=== PATIENT | male | born 1970 ===

== ENCOUNTER 2017-01-20 21:30 | Emergency (ER) | payer OTHER ==
[2017-01-20 21:31] VITALS: BMI 36.6
--- NOTE | 2017-01-21 00:23 | C.PDOC ---
History Of Present Illness Patient, with a past medical history of hypertension and arthritis, presents to the ED complaining of numbness to his right cheek for the past 2 days. Patient denies slurred speech, facial droop, weakness, numbness to any other parts of the body, or vision change. Time Seen by Provider: 01/21/17 00:23 Chief Complaint (Nursing): Weakness/Neurological Deficit History Per: Patient History/Exam Limitations: no limitations Onset/Duration Of Symptoms: Days (2) Current Symptoms Are (Timing): Still Present Seizure Or Post-ictal Symptoms: None Fall Associated With With Symptoms: No Severity: Mild Pain Scale Rating Of: 0 Recent travel outside of the [place]: No Past Medical History Reviewed: Historical Data, Nursing Documentation, Vital Signs Vital Signs: Last Vital Signs Temp 98.8 F 01/21/17 00:52 Pulse 90 01/21/17 00:52 Resp 16 01/21/17 00:52 BP 164/98 H 01/21/17 00:52 Pulse Ox 97 01/21/17 02:38 - Medical History PMH: Arthritis (gouty), HTN Family History: States: Unknown Family Hx - Social History Hx Tobacco Use: No Hx Alcohol Use: Yes Hx Substance Use: No - Immunization History Hx Tetanus Toxoid Vaccination: Yes Hx Influenza Vaccination: No Hx Pneumococcal Vaccination: No Review Of Systems Eyes: Negative for: Vision Change Musculoskeletal: Positive for: Other (numbness to right cheek) Neurological: Negative for: Weakness, Numbness, Change in Speech, Other (facial droop) Physical Exam - Physical Exam Appears: Non-toxic, No Acute Distress Skin: Warm, Dry Head: Atraumatic, Normacephalic Eye(s): bilateral: PERRL, EOMI Oral Mucosa: Moist Neck: Supple Chest: Symmetrical Cardiovascular: Rhythm Regular Respiratory: No Rales, No Rhonchi, No Wheezing Gastrointestinal/Abdominal: Soft, No Tenderness Back: No CVA Tenderness Extremity: Bilateral: Atraumatic, Normal Color And Temperature Neurological/Psych: Oriented x3, Normal Speech, Normal Cognition, Normal Cranial Nerves, Normal Motor, Normal Sensation Gait: Steady ED Course And Treatment ECG: Interpreted By Me, Viewed By Me ECG Rhythm: Sinus Rhythm, Nonspecific Changes O2 Sat by Pulse Oximetry: 97 (RA) Pulse Ox Interpretation: Normal - CT Scan/US Head CT Other Rad Studies (CT/US): Read By Radiologist (Mannie De Souza MD), Radiology Report Reviewed CT/US Interpretation: EXAM: CT Head Without Intravenous Contrast. CLINICAL HISTORY: The patient is a 46 years male; Signs and symptoms; Numbness / parasthesia; Right; Additional info: Facial numbness. TECHNIQUE: Axial computed tomography images of the head/brain without intravenous contrast. This CT exam. was performed using one or more of the following dose reduction techniques: automated exposure. control, adjustment of the mA and/or kV according to patient size, and/or use of iterative. reconstruction technique. COMPARISON: No relevant prior studies available. FINDINGS: The sulci and ventricles are normal in size and configuration for the stated age of the patient. The chilel-white matter differentiation is preserved. There is no evidence for acute intracranial hemorrhage, midline shift, mass effect, or acute vascular. territorial infarct. There is a chronic-appearing fracture deformity of the medial wall of the right orbit. The visualized paranasal sinuses are well-aerated. The mastoid air cells are clear. The skull base and calvaria appear intact. IMPRESSION: No CT evidence of acute intracranial abnormality. Changes of an acute infarct may not be visible on CT for up to 24 to 48 hours. If there is a persistent. clinical concern, a follow up examination and/or MRI may be of benefit. Progress Note: Plan: Head CT, blood work Reevaluation Time: 02:36 Reassessment Condition: Improved NIHSS Stroke Scale - Date/Time Evaluation Performed Date Performed: 01/21/17 Time Performed: 00:00 When Was NIHSS Performed: Baseline - How Severe is the Stoke Level of Consciousness: 0=Alert LOC to Questions: 0=Both comments correct LOC to commands: 0=Obeys both correctly Best Gaze: 0=Normal Visual: 0=No visual loss Facial: 0=Normal Motor Arm - Left: 0=No drift Motor Arm - Right: 0=No drift Motor Leg - Left: 0=No drift Motor Leg - Right: 0=No drift Limb Ataxia: 0=Absent Sensory: 0=Normal Best Language: 0=No aphasia Dysarthia: 0=Normal articulation Extinction & Inattention (Neglect): 0=Normal, no object Score: 0 Severity Of Stroke: 0= No Stroke Medical Decision Making Medical Decision Making: Upon provider reevaluation patient is feeling better, is medically stable, and requires no further treatment in the ED at this time. Patient will be discharged home with Rx for naproxyn. Counseling was provided and all questions were answered regarding diagnosis and need for follow up with the referred clinic. There is agreement to discharge plan. Return if symptoms persist or worsen. Disposition Counseled Patient/Family Regarding: Studies Performed, Diagnosis, Need For Followup - Disposition Referrals: [facility] [Outside] [facility] [Outside] Disposition: HOME/ ROUTINE Disposition Time: 00:23 Condition: FAIR Additional Instructions: Please return if symptoms recur Prescriptions: Naproxen [Naprosyn] 1 tab PO BID PRN #25 tab PRN Reason: Pain Instructions: Paresthesia (ED), Cervical Strain (DC) Print Language: URDU - Clinical Impression Clinical Impression: Paresthesia, Cervical strain - Scribe Statement The provider has reviewed the documentation as recorded by the Shankaribnas Mead Provider Attestation: All medical record entries made by the Scribe were at my direction and personally dictated by me. I have reviewed the chart and agree that the record accurately reflects my personal performance of the history, physical exam, medical decision making, and the department course for this patient. I have also personally directed, reviewed, and agree with the discharge instructions and disposition.
[2017-01-21 00:52] VITALS: RESP 16; TEMP 98.8
[2017-01-21 03:25] VITALS: BP 152/90; PULSE 83; O2SAT 100
[2017-01-21 03:25] LABS: BASO % 0.3 % (0.0-2.0); EOS # 0.1 K/uL (0.0-0.7); EOS % 1.9 % (0.0-4.0); HEMATOCRIT 46.9 % (35.0-51.0); LYMPH # 2.6 K/uL (1.0-4.3); LYMPH % 39.1 % (20.0-40.0); MEAN CELL VOLUME 87.5 fL (80.0-94.0); MEAN CORPUSCULAR HEMOGLOBIN 29.5 pg (27.0-31.0); MEAN CORPUSCULAR HGB CONC 33.7 g/dL (33.0-37.0); MEAN PLATELET VOLUME 9.3 fL (7.2-11.7); MONO # 0.6 K/uL (0.0-0.8); MONO % 8.8 % (0.0-10.0); NRBC % 0.1 % (0.0-2.0); WHITE BLOOD COUNT 6.6 K/uL (4.8-10.8)
[2017-01-21 03:34] LABS: CHLORIDE 103 mmol/L (98-107)
[2017-01-21 03:35] LABS: POTASSIUM 3.8 mmol/L (3.6-5.2); SODIUM 141 mmol/L (132-148)
[2017-01-21 03:37] LABS: ALB/GLOB RATIO 1.3 (1.0-2.1); AST/SGOT 57 U/L (17-59); BILIRUBIN,TOTAL 0.4 mg/dL (0.2-1.3); BLOOD UREA NITROGEN 10 mg/dL (9-20); CARBON DIOXIDE 23 mmol/L (22-30); GFR AFRICAN-AMERICAN > 60; TOTAL PROTEIN 7.7 g/dL (6.3-8.3)
[2017-01-21 03:38] LABS: ALKALINE PHOSPHATASE 79 U/L (38-126); ALT/SGPT 72 U/L (21-72); CALCIUM 9.1 mg/dl (8.6-10.4); GLUCOSE,RANDOM 98 mg/dL (75-110)
--- NOTE | 2017-01-21 08:04 | CT ---
PROCEDURE: CT HEAD WITHOUT CONTRAST. HISTORY: facial numbness COMPARISON: None available. TECHNIQUE: Axial computed tomography images were obtained through the head/brain without intravenous contrast. Radiation dose: Total exam DLP = 884 mGy-cm. This CT exam was performed using one or more of the following dose reduction techniques: Automated exposure control, adjustment of the mA and/or kV according to patient size, and/or use of iterative reconstruction technique. FINDINGS: HEMORRHAGE: No intracranial hemorrhage. BRAIN: No mass effect or edema. No atrophy or chronic microvascular ischemic changes. VENTRICLES: Unremarkable. No hydrocephalus. CALVARIUM: Chronic appearing fracture deformity of the medial wall of the right orbit. PARANASAL SINUSES: Unremarkable as visualized. No significant inflammatory changes. MASTOID AIR CELLS: Unremarkable as visualized. No inflammatory changes. OTHER FINDINGS: None. IMPRESSION: No acute intracranial abnormality. Chronic appearing fracture deformity of the medial wall of the right orbit. These findings were preliminarily reported at 1:05 a.m. on 01/21/[address] Mannie De Souza from [facility].
== END 2017-01-21 03:46 | disposition home or self-care (01) ==
LOC: C.ER 21:30
DX: S16.1XXA Strain of muscle, fascia and tendon at neck level, initial encounter (principal); X58.XXXA Exposure to other specified factors, initial encounter; Y92.9 Unspecified place or not applicable

== ENCOUNTER 2017-05-06 15:40 | Emergency (ER) | payer OTHER ==
[2017-05-06 15:40] VITALS: BMI 38.5
--- NOTE | 2017-05-06 17:46 | C.PDOC ---
History Of Present Illness 46year old male with PMH of HTN presents to ED with complaints of chest palpitations with associated SOB since last night. Patient reports sensation of heart beating fast and when he takes deep breath it is aggravated. Patient reports feeling similar episodes in the past, but denies any medical consult. He reports eating today and feeling burning sensation in his stomach and then belching with mild relief and sour taste in his mouth. Additionally when he checked is blood pressure today and noticed it was high, his "heart feels extra stressed". He took his medication and came to ED. He denies chest pain, dizziness, nausea, vomiting. Time Seen by Provider: 05/06/17 16:56 Chief Complaint (Nursing): Palpitations History Per: Patient History/Exam Limitations: no limitations Onset/Duration Of Symptoms: Days Current Symptoms Are (Timing): Still Present Quality Of Symptoms: Rapid Heart Rate, Extra Beats Past Medical History Reviewed: Historical Data, Nursing Documentation, Vital Signs Vital Signs: Last Vital Signs Temp 99 F 05/06/17 18:54 Pulse 82 05/06/17 18:54 Resp 18 05/06/17 18:54 BP 144/97 H 05/06/17 18:54 Pulse Ox 96 05/06/17 18:54 - Medical History PMH: Arthritis (gouty), HTN Family History: States: Unknown Family Hx - Social History Hx Tobacco Use: No Hx Alcohol Use: Yes Hx Substance Use: No - Immunization History Hx Tetanus Toxoid Vaccination: Yes Hx Influenza Vaccination: No Hx Pneumococcal Vaccination: No Review Of Systems Constitutional: Negative for: Fever, Weakness, Malaise Cardiovascular: Positive for: Palpitations. Negative for: Chest Pain Respiratory: Negative for: Shortness of Breath Gastrointestinal: Negative for: Vomiting, Abdominal Pain, Diarrhea Musculoskeletal: Negative for: Neck Pain, Shoulder Pain Skin: Negative for: Rash Neurological: Negative for: Weakness, Numbness, Headache, Dizziness Physical Exam - Physical Exam Appears: Non-toxic, No Acute Distress Skin: Warm, Dry, No Diaphoretic, No Pale, No Rash Head: Atraumatic, Normacephalic Eye(s): bilateral: Normal Inspection Oral Mucosa: Moist Neck: Normal ROM Chest: Symmetrical, No Tenderness Cardiovascular: Rhythm Regular, No Murmur Respiratory: Normal Breath Sounds, No Rales, No Rhonchi, No Wheezing Gastrointestinal/Abdominal: Normal Exam, Soft, No Tenderness Back: Normal Inspection, No Vertebral Tenderness, No Paraspinal Tenderness Extremity: Bilateral: Atraumatic, No Pedal Edema, Normal Color And Temperature, Normal ROM Pulses: Left Radial: Normal Neurological/Psych: Oriented x3, Normal Speech, Normal Motor, Normal Sensation Gait: Steady ED Course And Treatment - Laboratory Results Result Diagrams: 05/06/17 17:52 05/06/17 17:52 Lab Interpretation: No Acute Changes ECG: Interpreted By Me, Viewed By Me ECG Rhythm: Sinus Rhythm ECG Interpretation: No Acute Changes Rate From EC O2 Sat by Pulse Oximetry: 98 - Radiology CXR: Interpreted by Me, Viewed By Me CXR Interpretation: Yes: No Acute Disease Medical Decision Making Medical Decision Makin46 year old male with hear palpitations since last night, denies chest pain. EKG shows no acute findings. Labs ordered and CXR. Review all labs and CXR. Patient remained alert and oriented in no acute distress. No episode during ED evaluation. Patient reports it happened more last night and when he ate today. Symptoms may be anxiety related. Advise follow up in the clinic or return to hospital for any worsening symptoms including chest pain or dyspnea. Disposition Counseled Patient/Family Regarding: Studies Performed, Diagnosis, Need For Followup - Disposition Referrals: Prema Munoz MD [Staff Provider] - Disposition: HOME/ ROUTINE Disposition Time: 18:25 Condition: STABLE Additional Instructions: Vaya a carlson mdico o la clnica en 2-5 cruz sin falta, para mas evaluacin. Volver a la hua de emergencia en cualquier momento si los sntomas persisten o empeoran. Instructions: Palpitations (ED) Forms: [employer] (Mongolian) Print Language: KYRGYZ - POA Present On Arrival: None - Clinical Impression Clinical Impression: Palpitations
[2017-05-06 17:56] LABS: BASO % 0.3 % (0.0-2.0); EOS # 0.1 K/uL (0.0-0.7); EOS % 1.5 % (0.0-4.0); HEMOGLOBIN 16.7 g/dL (12.0-18.0); LYMPH # 2.5 K/uL (1.0-4.3); LYMPH % 32.7 % (20.0-40.0); MEAN CELL VOLUME 86.9 fL (80.0-94.0); MEAN CORPUSCULAR HEMOGLOBIN 30.4 pg (27.0-31.0); MEAN PLATELET VOLUME 9.1 fL (7.2-11.7); MONO # 0.7 K/uL (0.0-0.8); NEUT # 4.3 K/uL (1.8-7.0); NEUT % 56.5 % (50.0-75.0); NRBC % 0.1 % (0.0-2.0); RBC 5.49 Mil/uL (4.40-5.90); RED CELL DISTRIBUTION WIDTH 14.5 % (11.5-14.5); WHITE BLOOD COUNT 7.6 K/uL (4.8-10.8)
[2017-05-06 18:04] LABS: ALBUMIN 4.4 g/dL (3.5-5.0)
--- NOTE | 2017-05-06 18:05 | RAD ---
HISTORY: palpitation, sob COMPARISON: Chest x-ray performed 03/02/16 TECHNIQUE: Chest PA and lateral FINDINGS: Examination limited by habitus. LUNGS: No focal consolidation. Please note that chest x-ray has limited sensitivity for the detection of pulmonary masses. PLEURA: No significant pleural effusion identified. No definite pneumothorax . CARDIOVASCULAR: Heart size appears within normal limits. OSSEOUS STRUCTURES: Mild degenerative changes. VISUALIZED UPPER ABDOMEN: Unremarkable. OTHER FINDINGS: None. IMPRESSION: No focal consolidation, significant pleural effusion, or definite pneumothorax identified.
[2017-05-06 18:07] LABS: GFR AFRICAN-AMERICAN > 60; GFR NON-AFRICAN AMERICAN > 60
[2017-05-06 18:08] LABS: ALB/GLOB RATIO 1.1 (1.0-2.1); ALT/SGPT 77 U/L (21-72); AST/SGOT 55 U/L (17-59); BLOOD UREA NITROGEN 9 mg/dL (9-20); CALCIUM 9.5 mg/dl (8.6-10.4)
[2017-05-06 18:55] VITALS: BP 144/97; PULSE 82; RESP 18; TEMP 99
--- NOTE | 2017-05-07 12:22 | CARD ---
APPROVED REPORT EKG Measurement Heart [id number] <Conclusion> Normal sinus rhythm Normal ECG
[2017-05-07 14:34] VITALS: O2SAT 98
== END 2017-05-06 18:59 | disposition home or self-care (01) ==
LOC: C.ER 15:40
DX: R00.2 Palpitations (principal); I10 Essential (primary) hypertension

== ENCOUNTER 2018-02-03 17:47 | Emergency (ER) | payer SELFPAY ==
[2018-02-03 17:57] VITALS: BMI 36.6
--- NOTE | 2018-02-03 18:35 | C.PDOC ---
History Of Present Illness 47 y/o male, w/ PMhx of HTN, presents to the ER complaining of high blood pressure which has been present for the past 2 days. Patient states that his systolic BP was 170. Patient reports that he felt " fatigued and dizzy" earlier today. Patient denies having fever, chills, and other complaints at this time. Time Seen by Provider: 02/03/18 18:11 Chief Complaint (Nursing): High Blood Pressure History Per: Patient History/Exam Limitations: no limitations Onset/Duration Of Symptoms: Days Current Symptoms Are (Timing): Still Present Severity: Moderate Past Medical History Reviewed: Historical Data, Nursing Documentation, Vital Signs Vital Signs: Last Vital Signs Temp 98.2 F 02/03/18 19:43 Pulse 96 H 02/03/18 19:43 Resp 18 02/03/18 19:43 BP 136/90 02/03/18 19:43 Pulse Ox 96 02/03/18 19:43 - Medical History PMH: Arthritis, HTN Other Surgeries: Hx of surgeries Family History: States: No Known Family Hx - Social History Hx Tobacco Use: No Hx Alcohol Use: Yes Hx Substance Use: No - Immunization History Hx Tetanus Toxoid Vaccination: Yes Hx Influenza Vaccination: No Hx Pneumococcal Vaccination: Yes (2014) Review Of Systems Except As Marked, All Systems Reviewed And Found Negative. Constitutional: Negative for: Fever, Chills Neurological: Positive for: Dizziness (( currently resolved)) Physical Exam - Physical Exam Appears: Non-toxic, Other (mildly anxious) Skin: Normal Color, Warm, Dry Head: Atraumatic, Normacephalic Eye(s): bilateral: Normal Inspection Nose: Normal Oral Mucosa: Moist Neck: Supple Chest: Symmetrical Cardiovascular: Rhythm Regular Respiratory: Normal Breath Sounds, No Rales, No Rhonchi, No Wheezing Neurological/Psych: Oriented x3, Normal Speech ED Course And Treatment - Laboratory Results Result Diagrams: 02/03/18 18:45 02/03/18 18:45 ECG: Interpreted By Me, Viewed By Me ECG Rhythm: Sinus Rhythm Interpretation Of ECG: No ST/T wave changes Rate From EC (BPM) O2 Sat by Pulse Oximetry: 97 (RA) Pulse Ox Interpretation: Normal Medical Decision Making Medical Decision Making: ro htn ermegency vs urgencyPlan: --Labs --ECG b/p decreased in er, labs ekg unremarkable. neuro intact. advise outpt fu and return precautions Disposition - Disposition Referrals: [facility] [Outside] [facility] [Outside] Disposition: HOME/ ROUTINE Disposition Time: 08:00 Condition: STABLE Additional Instructions: please follow up in clinic and discuss your medications with your doctor. return to er with worsening symptoms or concenrs. Instructions: High Blood Pressure (DC) Forms: [employer] (Hungarian) Print Language: MACEDONIAN - Clinical Impression Clinical Impression: Dizziness, Hypertension - Scribe Statement The provider has reviewed the documentation as recorded by the Johanna Irving Provider Attestation: All medical record entries made by the Johanna were at my direction and personally dictated by me. I have reviewed the chart and agree that the record accurately reflects my personal performance of the history, physical exam, medical decision making, and the department course for this patient. I have also personally directed, reviewed, and agree with the discharge instructions and disposition.
[2018-02-03 18:48] LABS: BASO % 0.1 % (0.0-2.0); EOS # 0.2 K/uL (0.0-0.7); EOS % 2.4 % (0.0-4.0); HEMOGLOBIN 15.8 g/dL (12.0-18.0); LYMPH # 2.7 K/uL (1.0-4.3); LYMPH % 36.2 % (20.0-40.0); MEAN CELL VOLUME 85.9 fL (80.0-94.0); MEAN CORPUSCULAR HEMOGLOBIN 30.4 pg (27.0-31.0); MEAN CORPUSCULAR HGB CONC 35.4 g/dL (33.0-37.0); MEAN PLATELET VOLUME 8.5 fL (7.2-11.7); MONO # 0.8 K/uL (0.0-0.8); MONO % 10.4 % (0.0-10.0); NEUT # 3.8 K/uL (1.8-7.0); NEUT % 50.9 % (50.0-75.0); NRBC % 0.1 % (0.0-2.0); RBC 5.18 Mil/uL (4.40-5.90); RED CELL DISTRIBUTION WIDTH 14.3 % (11.5-14.5); WHITE BLOOD COUNT 7.4 K/uL (4.8-10.8)
[2018-02-03 18:57] LABS: PROTHROMBIN TIME 10.8 SECONDS (9.7-12.2)
[2018-02-03 19:00] LABS: ALBUMIN 4.2 g/dL (3.5-5.0); ALT/SGPT 35 U/L (21-72); AST/SGOT 38 U/L (17-59); BLOOD UREA NITROGEN 10 mg/dL (9-20); CALCIUM 9.1 mg/dl (8.6-10.4); GFR AFRICAN-AMERICAN > 60; GFR NON-AFRICAN AMERICAN > 60
[2018-02-03 19:44] VITALS: BP 136/90; PULSE 96; RESP 18; TEMP 98.2
[2018-02-03 20:08] VITALS: O2SAT 97
--- NOTE | 2018-02-04 12:45 | CARD ---
APPROVED REPORT EKG Measurement Heart [id number] [place] [id number] <Conclusion> Normal sinus rhythm Normal ECG
== END 2018-02-03 19:44 | disposition home or self-care (01) ==
LOC: C.ER 17:47
DX: I10 Essential (primary) hypertension (principal); R42 Dizziness and giddiness

== ENCOUNTER 2018-04-13 11:11 | Emergency (ER) | payer OTHER ==
[2018-04-13 11:29] VITALS: BMI 35.5
[2018-04-13 11:30] VITALS: RESP 18
[2018-04-13] MEDS ORDERED: Naproxen 550 mg Tab PO STA (12:43)
[2018-04-13] MEDS ORDERED: Lidocaine 2% Inj (20ml) INFIL ONE (12:43)
[2018-04-13] MEDS ORDERED: Lidocaine 5% Patch TD STA (12:53)
[2018-04-13] MEDS ORDERED: Naproxen 550 mg Tab PO ONE (12:53)
[2018-04-13] MEDS ORDERED: Lidocaine 2% MPF (5 ml) Inj ONE (12:53)
[2018-04-13] MEDS ORDERED: Lidocaine 5% Patch TD ONE (12:57)
--- NOTE | 2018-04-13 13:04 | C.PDOC ---
History Of Present Illness 47 y/o male presents to the ED complaining of left ankle pain, onset 1 month ago following a work accident. Patient denies any fall/blunt trauma. He twisted the ankle while working and had x-rays done at that time. Patient states he never received the results. Reports he has a follow up appointment on 04/24, however the pain and swelling continues. Patient also complains of atraumatic back pain, non-radiating, for 1 month. The back pain is mostly left-sided and worsens with movement. Otherwise no fever, nausea, vomiting, dysuria, incontinence, numbness, or tingling. Time Seen by Provider: 04/13/18 12:27 Chief Complaint (Nursing): Back Pain History Per: Patient History/Exam Limitations: no limitations Onset/Duration Of Symptoms: Days Current Symptoms Are (Timing): Still Present Associated Symptoms: Other (No weakness) Exacerbating Factor(s): Turning, Movement Recent travel outside of the [place]: No Past Medical History Reviewed: Historical Data, Nursing Documentation, Vital Signs Vital Signs: Last Vital Signs Temp 98.1 F 04/13/18 11:30 Pulse 90 04/13/18 11:30 Resp 18 04/13/18 11:30 BP 144/92 H 04/13/18 11:30 Pulse Ox 96 04/13/18 13:56 - Medical History PMH: Arthritis, HTN Family History: States: Unknown Family Hx - Social History Hx Tobacco Use: No Hx Alcohol Use: Yes Hx Substance Use: No - Immunization History Hx Tetanus Toxoid Vaccination: Yes Hx Influenza Vaccination: No Hx Pneumococcal Vaccination: Yes (2014) Review Of Systems Except As Marked, All Systems Reviewed And Found Negative. Constitutional: Negative for: Fever Gastrointestinal: Negative for: Nausea, Vomiting Genitourinary: Negative for: Dysuria, Frequency, Incontinence Musculoskeletal: Positive for: Back Pain, Foot Pain (left ankle) Neurological: Negative for: Weakness, Numbness Physical Exam - Physical Exam Appears: Non-toxic, No Acute Distress Skin: Normal Color, Warm, Dry Head: Atraumatic, Normacephalic Eye(s): bilateral: Normal Inspection, PERRL, EOMI Nose: Normal Oral Mucosa: Moist Neck: Normal ROM, Supple Chest: Symmetrical Back: No Vertebral Tenderness, Muscle Spasm (to paralumbar regions), Paraspinal Tenderness (bilateral paralumbar tenderness), No Straight Leg Raising Extremity: Normal ROM, No Calf Tenderness, Capillary Refill (< 2 sec), No Deformity, Swelling (moderate swelling diffusely to the left ankle) Pulses: Left Dorsalis Pedis: Normal, Right Dorsalis Pedis: Normal Neurological/Psych: Oriented x3, Normal Speech, Normal Motor, Normal Sensation ED Course And Treatment O2 Sat by Pulse Oximetry: 96 (RA) Pulse Ox Interpretation: Normal Medical Decision Making Medical Decision Making: Old records reviewed, the patient was seen here for ankle pain and had xrays done which revealed no fracture but ((+) arthritis to the ankle. Plan: --Naproxen 550 mg PO --Lidoderm patch --Prednisone 60 mg PO On re-exam, the patient reports improvement of symptoms. Lungs are CTA, heart is RRR, abdomen is soft, non-tender and tolerating PO well. Pt is ambulatory in the ED with steady gait. Follow up with the medical doctor/clinic within 1-2 days without fail. Return if worsened. Disposition - Disposition Referrals: [facility] [Outside] Disposition: HOME/ ROUTINE Disposition Time: 13:52 Condition: IMPROVED Additional Instructions: Follow up with the medical doctor/clinic within 1-2 days without fail. Return if worsened. Prescriptions: Cyclobenzaprine [Flexeril] 5 mg PO TID #21 tab Lidocaine 5% [Lidoderm] 1 each TP DAILY #10 patch Naproxen [Naprosyn] 500 mg PO BID #20 tab Instructions: Osteoarthritis Forms: [facility] (Niuean) Print Language: COLOMBIAN - Clinical Impression Clinical Impression: Ankle pain, Low back strain, Arthritis - PA / [employer] / Resident Statement MD/DO has reviewed & agrees with the documentation as recorded. - Scribe Statement The provider has reviewed the documentation as recorded by the Scribe (Ivette Haynes) All medical record entries made by the Scribe were at my direction and personally dictated by me. I have reviewed the chart and agree that the record accurately reflects my personal performance of the history, physical exam, medical decision making, and the department course for this patient. I have also personally directed, reviewed, and agree with the discharge instructions and disposition.
[2018-04-13 14:19] VITALS: BP 160/100; PULSE 76; TEMP 98.7; O2SAT 98
== END 2018-04-13 14:16 | disposition home or self-care (01) ==
LOC: C.ER 11:11
DX: M25.572 Pain in left ankle and joints of left foot (principal); S39.012A Strain of muscle, fascia and tendon of lower back, initial encounter; X58.XXXA Exposure to other specified factors, initial encounter; Y92.9 Unspecified place or not applicable

== ENCOUNTER 2018-09-02 12:43 | Emergency (ER) | payer OTHER ==
[2018-09-02 12:43] VITALS: BMI 35.5
[2018-09-02 12:59] VITALS: TEMP 98.1
--- NOTE | 2018-09-02 13:47 | RAD ---
Date of service: 09/02/2018 PROCEDURE: Radiographs of the Lumbar Spine. HISTORY: back pain COMPARISON: No prior. FINDINGS: BONES: Normal alignment. No listhesis. No fracture. DISC SPACES: Unremarkable. OTHER FINDINGS: None. IMPRESSION: Unremarkable radiographs of the lumbar spine.
[2018-09-02 13:57] LABS: SQUAMOUS EPITHIAL < 1 /hpf (0-5); URINE BILIRUBIN NEGATIVE (NEGATIVE); URINE CLARITY Clear (Clear); URINE COLOR Yellow (YELLOW); URINE GLUCOSE (UA) NORMAL (Normal); URINE LEUKOCYTE ESTERASE NEG Leu/uL (Negative); URINE PROTEIN NEGATIVE (NEGATIVE); URINE UROBILINOGEN NORMAL mg/dL (0.2-1.0)
[2018-09-02 14:00] LABS: URINE BLOOD 1+ (NEGATIVE)
--- NOTE | 2018-09-02 15:24 | C.PDOC ---
History Of Present Illness 47 y/o male presents to the ED with 1 week history of low back pain radiating to the left flank. Denies any trauma/injury, recent lifting, nausea, vomiting, fever, or abdominal pain. He does report increased urinary frequency but no burning on urination. He denies trying any pain medication prior to arrival. Time Seen by Provider: 09/02/18 13:22 Chief Complaint (Nursing): Back Pain History Per: Patient History/Exam Limitations: no limitations Onset/Duration Of Symptoms: Days Current Symptoms Are (Timing): Still Present Associated Symptoms: None Past Medical History Reviewed: Historical Data, Nursing Documentation, Vital Signs Vital Signs: Last Vital Signs Temp 98.1 F 09/02/18 12:57 Pulse 96 H 09/02/18 12:57 Resp 20 09/02/18 12:57 BP 162/100 H 09/02/18 12:57 Pulse Ox 96 09/02/18 12:57 - Medical History PMH: Arthritis, HTN Other Surgeries: Right knee surgery Family History: States: Unknown Family Hx - Social History Hx Tobacco Use: No Hx Alcohol Use: Yes Hx Substance Use: No - Immunization History Hx Tetanus Toxoid Vaccination: Yes Hx Influenza Vaccination: No Hx Pneumococcal Vaccination: Yes (2014) Review Of Systems Constitutional: Negative for: Fever, Chills Gastrointestinal: Negative for: Nausea, Vomiting, Abdominal Pain, Diarrhea Genitourinary: Positive for: Frequency. Negative for: Dysuria, Hematuria Musculoskeletal: Positive for: Back Pain, Other (Flank Pain) Physical Exam - Physical Exam Appears: Non-toxic, No Acute Distress Skin: Warm, Dry Head: Atraumatic, Normacephalic Eye(s): bilateral: Normal Inspection, PERRL, EOMI Oral Mucosa: Moist Neck: Normal ROM Chest: Symmetrical Cardiovascular: Rhythm Regular, No Murmur Respiratory: Normal Breath Sounds, No Accessory Muscle Use, Other (No respiratory distress) Gastrointestinal/Abdominal: Soft, No Tenderness, No Distention Back: CVA Tenderness (Left), Paraspinal Tenderness (Left paralumbar), No Straight Leg Raising Extremity: Bilateral: Atraumatic, Normal Color And Temperature, Other (Equal DP and PT pulses) Neurological/Psych: Oriented x3, Normal Speech Gait: Steady ED Course And Treatment O2 Sat by Pulse Oximetry: 96 (RA) Pulse Ox Interpretation: Normal - Other Rad XR LS spine X-Ray: Read By Radiologist Interpretation: Accession No. : [id number]. Patient Name / ID : SYDNEE MARTINEZ / [id number]. Exam Date : 09/02/2018 13:30:18 ( Approved ). Study Comment : Sex / Age : M / 47Y. Creator : Manuel Driscoll MD. Dictator : Manuel Driscoll MD. Registered Nurse Step Down : Client Relation Specialist : Manuel Driscoll MD. Approver2 : Report Date : 09/02/2018 13:44:08. My Comment : . Date of service: 09/02/2018. PROCEDURE: Radiographs of the Lumbar Spine. HISTORY: back pain. COMPARISON: No prior. FINDINGS: BONES: Normal alignment. No listhesis. No fracture. DISC SPACES: Unremarkable. OTHER FINDINGS: None. IMPRESSION: Unremarkable radiographs of the lumbar spine. - CT Scan/US CT ABD/PELVIS Other Rad Studies (CT/US): Read By Radiologist, Radiology Report Reviewed CT/US Interpretation: Accession No. : [id number]. Patient Name / ID : SYDNEE NEELY / [id number]. Exam Date : 09/02/2018 15:22:39 ( Approved ). Study Comment : Sex / Age : M / 47Y. Creator : Karen Bryan. Dictator : Gayle Sibley MD. Registered Nurse Step Down : Client Relation Specialist : Gayle Sibley MD. Approver2 : Report Date : 09/02/2018 15:38:51. My Comment : . PROCEDURE: CT Abdomen and Pelvis without Oral or IV contrast. HISTORY: flank pain. COMPARISON: Noncontrast CT of the abdomen and pelvis performed 07/13/16. TECHNIQUE: Contiguous axial images of the abdomen and pelvis. No oral or IV contrast administered. Coronal and Sagittal reformats generated and reviewed. Radiation dose: Total exam DLP = 1028.07 mGy-cm. This CT exam was performed using one or more of the following dose reduction techniques: Automated exposure control, adjustment of the mA and/or kV according to patient size, and/or use of iterative reconstruction technique. FINDINGS: There is limited evaluation of the solid organs without the administration of IV contrast. LOWER THORAX: No visible consolidation, pleural effusion, or pneumothorax. 3 mm right middle lobe nodule, stable. LIVER: Unremarkable unenhanced appearance. GALLBLADDER AND BILE DUCTS: Unremarkable unenhanced appearance. PANCREAS: Unremarkable unenhanced appearance. SPLEEN: Unremarkable unenhanced appearance. ADRENALS: Unremarkable unenhanced appearance. KIDNEYS AND URETERS: Punctate nonobstructing right greater than left renal calculi. No hydronephrosis or obstructing renal calculus. BLADDER: The urinary bladder appears unremarkable. REPRODUCTIVE: Unremarkable. APPENDIX: The appendix appears within normal limits of caliber. No secondary signs of acute appendicitis. BOWEL: The stomach is nondistended. Lack of oral contrast limits evaluation for bowel pathology. The bowel loops appear within normal limits of caliber without evidence of intestinal obstruction. PERITONEUM: No significant free fluid. No definite free air. LYMPH NODES: No bulky lymphadenopathy identified. VASCULATURE: No atherosclerotic calcifications of the aorta. No aortic aneurysm. BONES: No acute osseous abnormality is detected. OTHER FINDINGS: None. IMPRESSION: No acute findings. Incidental findings as above. Medical Decision Making Medical Decision Making: Impression: 47 y/o male with low back pain, flank pain, urinary frequency Initial Plan: --Toradol 60 mg IM --Flexeril 10 mg PO --Tylenol 975 mg PO --Urinalysis --LS spine x-ray Progress: X-ray unremarkable. Urine with (+) RBCs. CT abd/pelvis ordered. CT is negative. Patient counseled regarding findings. Patient is stable for discharge home. Educated on diagnosis and the importance of follow up. Disposition Counseled Patient/Family Regarding: Studies Performed, Diagnosis, Need For Followup, Rx Given - Disposition Referrals: [facility] [Outside] Disposition: HOME/ ROUTINE Disposition Time: 16:03 Condition: STABLE Additional Instructions: follow up with medical clinic within 2 days call to make an appointment take medication as needed no heavy lifting return to ER if symptoms worsens or progress Prescriptions: Cyclobenzaprine [Cyclobenzaprine HCl] 10 mg PO TID PRN #12 tab PRN Reason: Muscle Spasm Lidocaine 5% [Lidoderm] 1 ea TD DAILY PRN #10 patch PRN Reason: Pain, Moderate (4-7) Naproxen [Naprosyn] 500 mg PO BID PRN #16 tab PRN Reason: Pain, Moderate (4-7) Instructions: Low Back Pain in Adults Forms: Gen Discharge Inst Slovak, [facility] (Slovak), Work Excuse Print Language: UZBEK - POA Present On Arrival: None - Clinical Impression Clinical Impression: Lumbar sprain - Scribe Statement The provider has reviewed the documentation as recorded by the Johanna Haynes Provider Attestation: All medical record entries made by the Johanna were at my direction and personally dictated by me. I have reviewed the chart and agree that the record accurately reflects my personal performance of the history, physical exam, medical decision making, and the department course for this patient. I have also personally directed, reviewed, and agree with the discharge instructions and disposition.
--- NOTE | 2018-09-02 15:58 | CT ---
PROCEDURE: CT Abdomen and Pelvis without Oral or IV contrast. HISTORY: flank pain COMPARISON: Noncontrast CT of the abdomen and pelvis performed 07/13/16 TECHNIQUE: Contiguous axial images of the abdomen and pelvis. No oral or IV contrast administered. Coronal and Sagittal reformats generated and reviewed. Radiation dose: Total exam DLP = 1028.07 mGy-cm. This CT exam was performed using one or more of the following dose reduction techniques: Automated exposure control, adjustment of the mA and/or kV according to patient size, and/or use of iterative reconstruction technique. FINDINGS: There is limited evaluation of the solid organs without the administration of IV contrast. LOWER THORAX: No visible consolidation, pleural effusion, or pneumothorax. 3 mm right middle lobe nodule, stable. LIVER: Unremarkable unenhanced appearance. GALLBLADDER AND BILE DUCTS: Unremarkable unenhanced appearance. PANCREAS: Unremarkable unenhanced appearance. SPLEEN: Unremarkable unenhanced appearance. ADRENALS: Unremarkable unenhanced appearance. KIDNEYS AND URETERS: Punctate nonobstructing right greater than left renal calculi. No hydronephrosis or obstructing renal calculus. BLADDER: The urinary bladder appears unremarkable. REPRODUCTIVE: Unremarkable. APPENDIX: The appendix appears within normal limits of caliber. No secondary signs of acute appendicitis. BOWEL: The stomach is nondistended. Lack of oral contrast limits evaluation for bowel pathology. The bowel loops appear within normal limits of caliber without evidence of intestinal obstruction. PERITONEUM: No significant free fluid. No definite free air. LYMPH NODES: No bulky lymphadenopathy identified. VASCULATURE: No atherosclerotic calcifications of the aorta. No aortic aneurysm. BONES: No acute osseous abnormality is detected. OTHER FINDINGS: None. IMPRESSION: No acute findings. Incidental findings as above.
[2018-09-02 16:23] VITALS: BP 152/101; PULSE 72; RESP 18
[2018-09-02 16:59] VITALS: O2SAT 96
== END 2018-09-02 16:23 | disposition home or self-care (01) ==
LOC: C.ER 12:43
DX: S33.5XXA Sprain of ligaments of lumbar spine, initial encounter (principal); X58.XXXA Exposure to other specified factors, initial encounter

== ENCOUNTER 2018-11-22 03:31 | Emergency (ER) | payer SELFPAY ==
[2018-11-22 03:31] VITALS: BMI 35.5
[2018-11-22 03:53] VITALS: PULSE 80; RESP 14; TEMP 98.4; O2SAT 98
--- NOTE | 2018-11-22 04:57 | C.PDOC ---
History Of Present Illness 48 year old male presents to the emergency department with complaints of left knee swelling and pain for the last week. 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 Time Seen by Provider: 11/22/18 03:50 Chief Complaint (Nursing): Lower Extremity Problem/Injury History Per: Patient History/Exam Limitations: no limitations Onset/Duration Of Symptoms: Other (one week) Current Symptoms Are (Timing): Still Present - Knee Description Of Injury: Other (chronic kneeling) Past Medical History Reviewed: Historical Data, Nursing Documentation, Vital Signs Vital Signs: Last Vital Signs Temp 98.4 F 11/22/18 03:45 Pulse 80 11/22/18 03:45 Resp 14 11/22/18 03:45 BP 160/90 H 11/22/18 03:45 Pulse Ox 98 11/22/18 03:45 - Medical History PMH: Arthritis, HTN Surgical History: No Surg Hx Family History: States: No Known Family Hx - Social History Hx Tobacco Use: No Hx Alcohol Use: Yes Hx Substance Use: No - Immunization History Hx Tetanus Toxoid Vaccination: Yes Hx Influenza Vaccination: No Hx Pneumococcal Vaccination: Yes (2014) Review Of Systems Except As Marked, All Systems Reviewed And Found Negative. Constitutional: Negative for: Fever, Chills Cardiovascular: Negative for: Chest Pain Respiratory: Negative for: Cough, Shortness of Breath Gastrointestinal: Negative for: Nausea, Vomiting, Abdominal Pain, Diarrhea Musculoskeletal: Positive for: Leg Pain (left knee) Physical Exam - Physical Exam Appears: Well, Non-toxic, No Acute Distress Skin: Normal Color, Warm, Dry Head: Atraumatic, Normacephalic Eye(s): bilateral: Normal Inspection, PERRL, EOMI Neck: Normal, Supple Extremity: Normal ROM, Swelling (suprapatellar effusion and swelling above the patella to the left knee.), Other (xeroderma and hyperpigmentation of both knees. NO erythema, NO warmth) Neurological/Psych: Oriented x3, Normal Speech, Normal Cognition ED Course And Treatment O2 Sat by Pulse Oximetry: 98 (RA) Pulse Ox Interpretation: Normal Progress Note: Plan: XR Left Knee 3 Views. Motrin 800mg PO. Ankle brace. Follow up with Orthopedist. Stable for d/c home. Disposition - Disposition Referrals: Arturo Bond MD [Staff Provider] - [facility] [Outside] [facility] [Outside] Disposition: HOME/ ROUTINE Disposition Time: 04:56 Condition: STABLE Additional Instructions: Follow up with Orthopedist/Clinic within 2-3 days. Return to ED if feel worse. Prescriptions: Ibuprofen [Motrin Tab] 600 mg PO Q8 #30 tab Instructions: Knee Pain (DC) Forms: [employer] (Salvadorean) Print Language: MALTESE - Clinical Impression Clinical Impression: Knee pain - PA / MANAGER TRAINEE / Resident Statement MD/DO has reviewed & agrees with the documentation as recorded. - Scribe Statement The provider has reviewed the documentation as recorded by the Scribe (Silviano Ruiz) All medical record entries made by the Scribe were at my direction and personally dictated by me. I have reviewed the chart and agree that the record accurately reflects my personal performance of the history, physical exam, medical decision making, and the department course for this patient. I have also personally directed, reviewed, and agree with the discharge instructions and disposition.
[2018-11-22 05:07] VITALS: BP 150/80
--- NOTE | 2018-11-22 12:51 | RAD ---
Date of service: 11/22/2018 PROCEDURE: Left Knee Radiographs. HISTORY: Pain. COMPARISON: None. FINDINGS: BONES: Normal. No fracture. JOINTS: Mild osteoarthritis JOINT EFFUSION: None. OTHER FINDINGS: None. IMPRESSION: Mild osteoarthritis.
== END 2018-11-22 05:09 | disposition home or self-care (01) ==
LOC: C.ER 03:31
DX: M25.562 Pain in left knee (principal)